=== PATIENT | female | born 1940 | race Caucasian/White ===

== ENCOUNTER 2017-08-29 18:32 | Emergency (ER) | payer MEDICARE ==
[2017-08-29 19:09] LABS: #Basophils 0.1 thou/uL (0.0-0.2); #Eosinphils 0.2 thou/uL (0.0-0.7); #Lymphocytes 3.2 thou/uL (1.20-3.40); #Monocytes 0.6 thou/uL (0.11-0.59); #Neutrophils 5.2 thou/uL (1.40-6.50); %Basophils 0.9 % (0.0-1.0); %Eosinophils 2.3 % (0.0-10.0); %Monocytes 6.5 % (0.0-10.0); %Neutrophils 56.3 % (42.0-75.0); Hemoglobin 13.7 g/dL (12.0-16.0); Mean Corpuscular HGB CONC 33.4 g/dL (32.0-36.0); Mean Corpuscular Hemoglobin 30.2 pg (27.0-31.0); Mean Corpuscular Volume 90.2 fl (81.0-99.0); Mean Platelet Volume 7.5 fL (7.4-10.4); Platelet Count 251 thou/uL (130-400); RBC Distribution Width 12.1 % (11.5-14.5); Red Blood Cell (RBC) Count 4.56 mill/uL (4.20-5.40); White Blood Cell (WBC) Count 9.3 thou/uL (4.8-10.8)
[2017-08-29 19:15] LABS: INR-International Normal Ratio 0.9; PTT 26.4 SEC (22.9-36.1)
[2017-08-29 19:29] LABS: ALT (SGPT) 14 U/L (8-55); AST (SGOT) 18 U/L (5-34); Albumin 4.2 g/dL (3.4-4.8); Alkaline Phosphatase 48 U/L (40-150); Anion Gap 15 mmol/L (10-20); BUN (Urea Nitrogen) 16 mg/dL (9.8-20.1); Bilirubin, Total 0.4 mg/dL (0.2-1.2); Calc. Creatinine Clearance 0 mL/min (70-130); Calcium 10.2 mg/dL (7.8-10.44); Carbon Dioxide 24 mmol/L (23-31); Chloride 103 mmol/L (98-107); Estimated GFR-MDRD 64; Globulin 2.9 g/dL (2.4-3.5); Glucose 167 mg/dL (83-110); Potassium 4.2 mmol/L (3.5-5.1); Protein, Total 7.1 g/dL (6.0-8.3); Sodium 138 mmol/L (136-145)
--- NOTE | 2017-08-29 20:35 | ULT ---
LEFT LOWER EXTREMITY VENOUS DOPPLER: 08/29/17 HISTORY: Pain. COMPARISON: Doppler ultrasound from 2009. TECHNIQUE: Real time hernández scale, color flow and spectral analysis of the left lower extremity venous system was performed. Common femoral, femoral, proximal portion of the greater saphenous and deep femoral veins as well as popliteal and posterior tibial veins were interrogated. There is no deep venous thrombosis . There is a superficial thrombus in the left greater saphenous vein at the calf. IMPRESSION: Superficial thrombus of the left greater saphenous vein. No deep venous thrombosis. POS: [facility]
== END 2017-08-29 20:15 | disposition home or self-care (01) ==
LOC: ERS 18:32
DX: I82.4Z2 Acute embolism and thrombosis of unspecified deep veins of left distal lower extremity (principal); I10 Essential (primary) hypertension; E11.9 Type 2 diabetes mellitus without complications
CPT/HCPCS: 80053; 85025; 85610; 85730

== ENCOUNTER 2018-03-05 13:27 | Outpatient (CLI) | payer MEDICARE ==
--- NOTE | 2018-03-05 14:17 | ULT ---
LEFT LOWER EXTREMITY VENOUS DOPPLER ULTRASOUND: 03/05/18 COMPARISON: 08/29/17 HISTORY: Superficial venous thrombosis status post treatment. TECHNIQUE: Multiplanar hernández scale sonographic imaging of the venous structures of the left lower extremity obtai orquidea with color flow and spectral analysis. FINDINGS: Left common femoral vein, greater saphenous vein, profunda femoral vein, femoral vein, popliteal vein , and posterior tibial vein are patent. There is normal blood flow, augmentation and compression with in the deep venous system on the left. The varicosities seen on the prior examination within the medial left calf are again visualized. On t his examination, the clot seen within these venous varicosities has resolved. IMPRESSION: No evidence for deep venous thrombosis of the left lower extremity. Previously noted clot within vari cosities within the left calf have resolved. POS: [facility]
== END 2018-03-05 13:28 | disposition home or self-care (01) ==
LOC: SCSULT 13:27
PROVIDERS: ATTEND Nurse Practitioner Family
DX: I10 Essential (primary) hypertension (principal); I83.92 Asymptomatic varicose veins of left lower extremity

== ENCOUNTER 2018-06-01 14:35 | Outpatient (CLI) | payer MEDICARE ==
--- NOTE | 2018-06-01 15:51 | RAD ---
LEFT SHOULDER 3 VIEWS: HISTORY: Left shoulder pain for the past 2 months. FINDINGS: Moderate arthritic changes of the AC joints are seen. The glenohumeral joint space appears unremarka ble. Bones are demineralized. 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 POS: [facility]
== END 2018-06-01 14:36 | disposition home or self-care (01) ==
LOC: SCSRAD 14:35
PROVIDERS: ATTEND Nurse Practitioner Family
DX: M25.512 Pain in left shoulder (principal); M19.012 Primary osteoarthritis, left shoulder

== ENCOUNTER 2019-09-20 14:44 | Emergency (ER) | payer MEDICARE ==
[2019-09-20] MEDS ORDERED: Tobramycin Sulfate 0.3% Ophth Susp 5 ml Bottle ONE (17:18)
== END 2019-09-20 17:45 | disposition home or self-care (01) ==
LOC: ERS 14:44
DX: B02.9 Zoster without complications (principal); E78.5 Hyperlipidemia, unspecified; E11.9 Type 2 diabetes mellitus without complications; I10 Essential (primary) hypertension; Z79.899 Other long term (current) drug therapy
CPT/HCPCS: 99282

== ENCOUNTER 2019-11-16 05:44 | Emergency (ER) | payer MEDICARE ==
[2019-11-16] MEDS ORDERED: Meclizine HCl 25 MG TAB ONE (05:53)
[2019-11-16] MEDS ORDERED: cloNIDine 0.1 MG TAB ONE (06:12)
--- NOTE | 2019-11-16 08:47 | CT ---
CT OF THE BRAIN WITHOUT CONTRAST: Date: 11/16/2019 INDICATION: History of hypertension and dizziness. COMPARISON: Prior exam dated 01/31/2010. FINDINGS: Generalized cerebral and cerebellar atrophy is present and stable. No acute infarct, hemorrhage, or h ydrocephalus is present. 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 There is mild chronic small vessel white matter ischemic change. No midline shift is evident. Mastoid air luann ls and paranasal sinuses are clear. IMPRESSION: 1. No acute intracranial abnormality. 2. Chronic ischemic change as above. POS:
--- NOTE | 2019-11-20 11:53 | EKG ---
Test Reason : EMERGENCY Blood Pressure : / mmHG Vent. Rate : 068 BPM Atrial Rate : 068 BPM P-R Int : 138 ms QRS Dur : 076 ms QT Int : 420 ms P-R-T Axes : 066 049 046 degrees QTc Int : 446 ms Normal sinus rhythm Normal ECG Confirmed by MICHAEL ASHLEY ([id number]), dictionary editor DORA RODRIGUES ([id number]) on 11/20/2019 11:53:33 AM Referred By: Confirmed By:MICHAEL ASHLEY
== END 2019-11-16 07:15 | disposition home or self-care (01) ==
LOC: ERS 05:44
DX: I10 Essential (primary) hypertension (principal); R42 Dizziness and giddiness; E11.9 Type 2 diabetes mellitus without complications; E78.5 Hyperlipidemia, unspecified; E78.00 Pure hypercholesterolemia, unspecified; Z86.718 Personal history of other venous thrombosis and embolism; Z79.899 Other long term (current) drug therapy; Z79.84 Long term (current) use of oral hypoglycemic drugs; Z79.82 Long term (current) use of aspirin
CPT/HCPCS: 70450; 93005